=== PATIENT | male | born 1985 | race American Indian/Alaskan Native ===

== ENCOUNTER 2020-12-22 07:06 | Day surgery (SDC) | payer BC ==
[~2020-12-22 07:06] MED LIST: IOHEXOL 300 MG/ML 50ML IV ONE
[2020-12-22] MEDS ORDERED: ONDANSETRON 4 MG/2 ML INJ ONE (07:26)
[2020-12-22] MEDS ORDERED: fentaNYL 100 MCG/2 ML INJ ONE (07:26)
[2020-12-22] MEDS ORDERED: propofoL 200 MG/20 ML VIAL IV ONE ×2 (07:26→08:00)
[2020-12-22] MEDS ORDERED: dexAMETHasone 20 MG/5 ML VIAL ONE (07:26)
[2020-12-22] MEDS ORDERED: LACTATED RINGERS 1,000 ML IV SCH (07:30)
[2020-12-22] MEDS ORDERED: WATER FOR IRRIG STERILE 2000 ML IR ONE ×2 (07:38→08:45)
[2020-12-22] MEDS ORDERED: fentaNYL 100 MCG/2 ML INJ IV PRN (07:48)
[2020-12-22] MEDS ORDERED: ONDANSETRON 4 MG/2 ML INJ IV PRN (07:48)
--- NOTE | 2020-12-22 07:48 | Anesthesia Consultation ---
Anesthesia Consult and Med Hx Date of service: 12/22/20 - Airway Anesthetic Teeth Evaluation: Good ROM Head & Neck: Adequate Mental/Hyoid Distance: Adequate Mallampati Class: Class II Intubation Access Assessment: Probably Good - Pre-Operative Health Status ASA Pre-Surgery Classification: ASA2 Proposed Anesthetic Plan: General - Pulmonary Hx Smoking: No Hx Respiratory Symptoms: No Hx Sleep Apnea: Yes (+ CPAP) - Cardiovascular System Hx Hypertension: No Hx Heart Attack/AMI: No - Central Nervous System CVA: No - Endocrine Hx Renal Disease: No Hx Liver Disease: No Hx Insulin Dependent Diabetes: No Hx Non-Insulin Dependent Diabetes: No Hx Thyroid Disease: No - Other Systems Hx Obesity: Yes - Additional Comments Anesthesia Medical History Comments: No prior GA. No FHx anesthetic complications.
--- NOTE | 2020-12-22 07:48 | Anesthesia Day of Surgery ---
Anesthesia Day of Surgery - Day of Surgery Patient Examined: Yes Patient H&P Reviewed: Yes Patient is NPO: Yes
[2020-12-22] MEDS ORDERED: ceFAZolin/Water 2 GM/20 ML 2 GM/20 ML SYRINGE IV ONE (07:54)
[2020-12-22] MEDS ORDERED: LIDOCAINE MPF (2%) 20 MG/1 ML VIAL 5 ML ONE (08:00)
[2020-12-22] MEDS ORDERED: MIDAZOLAM 2 MG/2 ML INJ IV NR (08:00)
[2020-12-22] MEDS ORDERED: ceFAZolin/Water 2 GM/20 ML 2 GM/20 ML SYRINGE IV NR (08:20)
[2020-12-22] MEDS ORDERED: MIDAZOLAM 2 MG/2 ML INJ ONE (08:21)
[2020-12-22] MEDS ORDERED: ePHEDrine SULFATE 50 MG/1 ML INJ ONE (08:29)
[2020-12-22] MEDS ORDERED: IOHEXOL 300 MG/ML 50ML IV ONE (08:46)
--- NOTE | 2020-12-22 09:20 | Short Stay Summary ---
Short Stay Documentation Date of service: 12/22/20 - History H&P: obtained from office - Allergies and Medications Current Medications: Allergies No Known Allergies Allergy (Unverified 12/22/20 07:24) Active Medications Fentanyl (Fentanyl 100 Mcg/2 Ml Inj) 50 mcg IV Q5MIN PRN PRN Reason: Pain , Severe (7-10) Stop: 12/22/20 23:00 Lactated Ringer's (Lactated Ringers) 1,000 mls @ 100 mls/hr IV DIRECT SAMY Midazolam HCl (Midazolam 2 Mg/2 Ml Inj) 2 mg IV PREOP NR Stop: 12/22/20 23:59 Ondansetron HCl (Ondansetron 4 Mg/2 Ml Inj) 4 mg IV ONCE PRN PRN Reason: Nausea And Vomiting Stop: 12/22/20 10:00 - Brief post op/procedure progress note Date of procedure: 12/22/20 Pre-op diagnosis: urethral stricture Post-op diagnosis: same Procedure: cysto, DVIU, RPG, CYSTOGRAM Anesthesia: GETA Surgeon: SYD MENDEZ Condition: stable - Hospital course Hospital course: [facility] ON CHART - Disposition Condition at discharge: Stable Disposition: 01 HOME / SELF CARE / HOMELESS Short Stay Discharge Plan Follow up with: EL GANDHI MD [Primary Care Provider] - 7 Days
[2020-12-22] MEDS ORDERED: HYDROcodone/ACETAMINOPHEN 5-325 MG TAB ONE (10:24)
[2020-12-22 10:50] VITALS: BP 124/66
[2020-12-22] MEDS ORDERED: HYDROcodone/ACETAMINOPHEN 5-325 MG TAB PO PRN (11:00)
--- NOTE | 2020-12-22 12:49 | Post Anesthesia Evaluation ---
- Post Anesthesia Evaluation Patient Participated: Yes Airway Patent: Yes Stable Respiratory Function: Yes Nausea/Vomiting: No Temp > 96.8F: Yes Pain Manageable: Yes Adequeate Hydration: Yes Anesthesia Complications: No
--- NOTE | 2020-12-22 13:06 | Operative Report ---
DATE OF SURGERY: 12/22/2020 DATE OF SURGERY: 12/22/2020 PREOPERATIVE DIAGNOSIS: Urethral stricture. POSTOPERATIVE DIAGNOSIS: Urethral stricture. PROCEDURES: Cystoscopy, direct vision internal urethrotomy, bilateral retrograde pyelograms, and cystogram. SURGEON: Bryce Hinds M.D. ANESTHESIA: General. ESTIMATED BLOOD LOSS: Minimal. FLUIDS: Crystalloid. COMPLICATIONS: No complications. INDICATIONS: This patient is a 35-year-old gentleman seen in the office for 7-8 years of decreased force of stream and hematuria. CT of abdomen and pelvis unremarkable. Office cystoscopy revealed a dense stricture. He presents now for intervention. DESCRIPTION OF PROCEDURE: The patient was taken to the operative suite, placed in a supine position. After adequate general anesthesia, placed in the dorsal lithotomy position, prepped and draped in a sterile fashion. Pancystourethroscopy was performed with a 22-Niuean Storz cystoscope, obvious bulbar stricture pinpoint opening. Attempted urethrogram, could see the distal ureter, no dye in the bladder. After multiple attempts with a straight and curved 0.035 Glidewire, I was able to advance it into the bladder. Using a cold knife incision at the 12 o'clock position, I was able to advance the scope. Prostate was nonobstructing. Bladder with no tumors or stones. Bilateral retrograde pyelograms were obtained with an 8-Niuean [place] catheter and 8 mL of contrast with some mild J-hooking of the lower ureters. An 18-Niuean [place] tip catheter was inserted over the wire. Cystogram, no extravasation or reflux. Bladder was drained. Rectal exam was benign. He was extubated and taken to recovery room. He will go home on [place] and [place]. TID: [id number] RECEIPT: [id number] JAYNE/WILMAR/DELVIS
--- NOTE | 2020-12-22 14:57 | Fluoroscopy Report ---
FLUOROSCOPY RETROGRADE UROGRAPHY FLUOROSCOPY CYSTOGRAM STATIC FLUOROSCOPY RETROGRADE URETHROGRAM HISTORY: Urethral stricture FINDINGS: 24 seconds of fluoroscopy time was provided by radiology during retrograde urography, cysto gram and urethrogram. 10 fluoroscopic images are presented. The renal collecting systems appear ayush l bilaterally. There is normal filling of the bladder. The urethra is only partially imaged. Please c orrelate with the procedural report by urology. Signer Name: George Cross Jr, MD Signed: 12/22/2020 2:52 PM Workstation Name: [id number]
== END 2020-12-22 10:40 | disposition home or self-care (01) ==
LOC: OR 07:06
PROVIDERS: ATTEND Urology
DX: N35.012 Post-traumatic membranous urethral stricture (principal); R35.0 Frequency of micturition; E66.9 Obesity, unspecified; G47.30 Sleep apnea, unspecified; Z79.899 Other long term (current) drug therapy; Z98.890 Other specified postprocedural states
CPT/HCPCS: 52276; 74420; 74430; 74450; A4217; C1758; C1769; J0690; J1100; J2250; J2405; J2704; J3010; J7120; Q9967